=== PATIENT | male | born 1965 | race Caucasian/White ===

== ENCOUNTER 2017-05-24 07:30 | Emergency (ER) | payer BC ==
[~2017-05-24] VITALS: Ht 177.8 cm; Wt 79.3 kg
[2017-05-24 07:34] VITALS: TEMP 36.5; Ht 177.8 cm; Wt 79.3 kg
--- NOTE | 2017-05-24 07:58 | EMERGENCY ROOM VISIT NOTE ---
History Report prepared by Dick: Sindhu Catalan Under the Supervision of: Dr. Matthew Morton M.D. First contact with patient: 07:41 Chief Complaint: RESPIRATORY PROBLEMS Stated Complaint: CANNOT GET A FULL BREATH, NOT FEELING OXYGENATED History of Present Illness The patient is a 51 year old male who presents to the Emergency Room with complaints of constant respiratory problems since last night. The patient was at his martial arts class last night and he started feeling like short of breath from exercising. He states that typically he is able to recover and catch his breath, but last night he was unable to do this. His respiratory symptoms have persisted today. He still feels like he can't take a deep breath. He states, "I feel like I am anaerobic." The patient also reports feeling itchy and tingly all over. He notes dizziness and a headache. He rates his pain as s 2 /10 in severity. He states that he was feeling fine before his martial arts class last night. The patient denies any sinus pain, back pain, abdominal pain, and pain or swelling in his legs. He notes that he has been under a lot of stress lately. He is also in the [place] a lot for his job and he is unsure if he had any recent tick bites. 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 Source of History: patient Onset: last night Position: chest (respiratory) Symptom Intensity: 2/10 Quality: other (SOB) Timing: constant Modifying Factors (Worsening): exertion Associated Symptoms: + headache, + SOB, No abdominal pain, No back pain Note: Pt notes feeling itchy and tingly all over. He notes dizziness. Pt denies pain or swelling in his legs. Review of Systems All systems have been listed, reviewed, and are negative other than those previously mentioned. Please see Additional Medical History Sheet. Past Medical & Surgical Medical Problems: (1) Bite of nonvenomous arthropod (2) Infectious mononucleosis Family History Diabetes mellitus Social History Smoking Status: Former Smoker Marital Status: single Housing Status: lives alone Occupation Status: employed Current/Historical Medications No Active Prescriptions or Reported Meds Allergies Coded Allergies: No Known Allergies (Unverified Allergy, Mild, 10/27/06) Physical Exam Vital Signs Date Time Temp Pulse Resp B/P (MAP) Pulse Ox O2 Delivery O2 Flow Rate FiO2 05/24/17 14:40 78 18 136/101 98 Room Air 05/24/17 13:33 63 18 119/84 97 Room Air 05/24/17 12:11 60 05/24/17 11:50 56 18 126/87 96 Room Air 05/24/17 09:59 61 18 134/85 98 Room Air 05/24/17 08:06 98 Room Air 05/24/17 07:46 57 05/24/17 07:37 96 Room Air 05/24/17 07:34 36.5 59 17 122/82 98 Room Air Physical Exam GENERAL: Patient awake, alert, oriented x 3. Patient follows commands. Patient does not appear toxic. Patient is adequately hydrated and well- nourished. SKIN: No erythema, pallor, cyanosis or rash HEENT: Normal head, pupils equal, reactive to light and accommodation. Oral cavity and posterior pharynx appear normal. Neck: Without adenopathy, no neck vein distention. LUNGS: Clear to auscultation. No wheezes, no rales, no rhonchi. HEART: Grade 4/6 loud systolic murmur. No gallops. No rubs ABDOMEN: No masses, no rebound, no hepatomegaly or splenomegaly. EXTREMITIES: No signs of trauma. No pedal or pretibial edema. No calf or thigh tenderness. NEUROLOGIC: Cranial nerves II-XII within normal limits. No gross motor sensory function deficits. Medical Decision & Procedures ER Provider Diagnostic Interpretation: Radiology results as stated below per my review and radiologist interpretation: CHEST 2 VIEWS ROUTINE CLINICAL HISTORY: SOB dyspnea COMPARISON STUDY: No previous studies for comparison. FINDINGS: Mild cardiomegaly. Findings of a slight interstitial prominence throughout both hemithoraces. Curly B lines are noted at the lung bases. IMPRESSION: Early interstitial edema Electronically signed by: Caleb Sandoval M.D. 05/24/2017 8:31 AM Dictated Date/Time: 05/24/2017 8:27 AM Echocardiogram performed by Dr. Santos. Significant findings as stated below per his interpretation: Mitral Valve * Flail or severe prolapse of the mitral posterior leaflet. * There is no mitral valve stenosis. * There is severe mitral regurgitation. Laboratory Results 05/24/17 08:00 05/24/17 08:00 Test 05/24/17 08:00 05/24/17 08:10 05/24/17 08:12 Red Blood Count 4.23 M/uL (4.7-6.1) Mean Corpuscular Volume 88.7 fL (80-100) Mean Corpuscular Hemoglobin 30.3 pg (25-34) Mean Corpuscular Hemoglobin Concent 34.1 g/dl (32-36) RDW Standard Deviation 42.0 fL (36.4-46.3) RDW Coefficient of Variation 13.2 % (11.5-14.5) Mean Platelet Volume 11.6 fL (7.4-10.4) Anion Gap 5.0 mmol/L (3-11) Est Creatinine Clear Calc Drug Dose 88.2 ml/min Estimated GFR () 99.2 Estimated GFR (Non- 85.5 BUN/Creatinine Ratio 14.7 (10-20) Calcium Level 8.5 mg/dl (8.5-10.1) Total Bilirubin 0.4 mg/dl (0.2-1) Aspartate Amino Transf (AST/SGOT) 20 U/L (15-37) Alanine Aminotransferase (ALT/SGPT) 25 U/L (12-78) Alkaline Phosphatase 69 U/L (45-117) Troponin I < 0.015 ng/ml (0-0.045) Pro-B-Type Natriuretic Peptide 272 pg/ml (0-900) Total Protein 6.5 gm/dl (6.4-8.2) Albumin 3.6 gm/dl (3.4-5.0) Globulin 2.9 gm/dl (2.5-4.0) Albumin/Globulin Ratio 1.2 (0.9-2) Lyme Disease IgG Antibody NEG (NEG) Lyme Disease IgM Antibody NEG (NEG) Urine Color YELLOW Urine Appearance CLEAR (CLEAR) Urine pH 6.5 (4.5-7.5) Urine Specific [place] 1.017 (1.000-1.030) Urine Protein NEG (NEG) Urine Glucose (UA) NEG (NEG) Urine Ketones NEG (NEG) Urine Occult Blood NEG (NEG) Urine Nitrite NEG (NEG) Urine Bilirubin NEG (NEG) Urine Urobilinogen NEG (NEG) Urine Leukocyte Esterase NEG (NEG) Lactic Acid Level 0.8 mmol/L (0.4-2.0) Laboratory results as stated above per my review. ECG Indication: SOB/dyspnea Rate (beats per minute): 60 Rhythm: normal sinus Findings: no acute ischemic change, no ectopy ED Course 0741: Past medical records reviewed. The patient was evaluated in room A11B. A complete history and physical examination was performed. 0907: I reassessed the patient and he is doing well. 1123: I spoke with Dr. Santos of cardiology. We discussed the patient's case and he is going to take the patient for an echocardiogram. 1257: I discussed the patient's results and treatment plan with Dr. Santos again at this time. He has discussed the patient's case with Dr. Chin of cardiology at [facility]. Dr. Chin has accepted the patient for transfer for further management. 1301: Echocardiogram was performed by Dr. Santos. Please see above for the significant findings regarding the patient's mitral valve. 1420: I reassessed the patient at this time. He is resting comfortably. I discussed the results and treatment plan with the patient. I answered all pertaining questions that he had. He expressed understanding and verbalized agreement. The patient is awaiting transfer to [facility]. Medical Decision Differential diagnoses includes upper respiratory infection, sinus infection, lactic acidosis, pneumonia, Lyme Disease. He was found to have a loud murmur. He has a prior history of a murmur. Multiple labs, EKG and imaging were obtained. The patient appears to be in mild congestive failure. An echocardiogram was performed with results as listed above. Case was discussed at length with Dr. Santos who consulted with Dr. Chin at [facility]. It was felt that the patient required immediate evaluation by a cardiovascular team for possible valvular repair. I explained this to the patient. The patient consented to transport. Transport orders were written. Medication Reconciliation: I attest that I have personally reviewed the patient' s current medication list. Blood pressure Screening: Patient was found to have normal blood pressure on screening and does not require follow up. Consults Time Called: 1119 Consulting Physician: Dr. Santos Returned Call: [address] Santos of cardiology. We discussed the patient's case and he is going to take the patient for an echocardiogram. Additional Consults: Time Called: 1257 Consulted Physician: Dr. Santos Returned Call: [phone] Additional Comments: I discussed the patient's results and treatment plan with Dr. Santos again at this time. He has discussed the patient's case with Dr. Chin of cardiology at [facility]. Dr. Chin has accepted the patient for transfer for further management. Impression Primary Impression: Ruptured chordae tendineae Additional Impression: Mitral regurgitation Scribe Attestation The scribe's documentation has been prepared under my direction and personally reviewed by me in its entirety. I confirm that the note above accurately reflects all work, treatment, procedures, and medical decision making performed by me. Departure Information Dispostion Transfer Acute Care Facility Prescriptions No Active Prescriptions or Reported Meds Referrals Minesh Aaron, Alessio.[facility]. (PCP) Patient Instructions My [facility] Problem Qualifiers
[2017-05-24 08:06] VITALS: O2SAT 98
[2017-05-24 08:13] LABS: HEMATOCRIT 37.5 % (42-52); MEAN CELL VOLUME 88.7 fL (80-100); MEAN CORPUSCULAR HEMOGLOBIN 30.3 pg (25-34); MEAN CORPUSCULAR HGB CONC 34.1 g/dl (32-36); MEAN PLATELET VOLUME 11.6 fL (7.4-10.4); PLATELET COUNT 153 K/uL (130-400); RED BLOOD COUNT 4.23 M/uL (4.7-6.1); WHITE BLOOD COUNT 3.86 K/uL (4.8-10.8)
[2017-05-24 08:25] LABS: URINE APPEARANCE CLEAR (CLEAR); URINE BILIRUBIN NEG (NEG); URINE COLOR YELLOW; URINE NITRITE NEG (NEG); URINE PH 6.5 (4.5-7.5); URINE SPECIFIC GRAVITY 1.017 (1.000-1.030); UROBILINOGEN NEG (NEG); ZZUR CULT IF INDIC CLEAN CATCH NO
[2017-05-24 08:29] LABS: ALT/SGPT 25 U/L (12-78); BLOOD UREA NITROGEN 15 mg/dl (7-18); BUN/CREATININE RATIO 14.7 (10-20); CALCIUM 8.5 mg/dl (8.5-10.1); CARBON DIOXIDE 24 mmol/L (21-32); CHLORIDE 114 mmol/L (98-107); GLUCOSE 99 mg/dl (70-99); SODIUM 143 mmol/L (136-145)
--- NOTE | 2017-05-24 08:32 | DIAGNOSTIC IMAGING REPORT ---
CHEST 2 VIEWS ROUTINE CLINICAL HISTORY: SOB dyspnea COMPARISON STUDY: No previous studies for comparison. FINDINGS: Mild cardiomegaly. Findings of a slight interstitial prominence throughout both hemithoraces. Curly B lines are noted at the lung bases. IMPRESSION: Early interstitial edema Electronically signed by: Caleb Sandoval M.D. 05/24/2017 8:31 AM Dictated Date/Time: 05/24/2017 8:27 AM
[2017-05-24 08:34] LABS: ALB/GLOB RATIO 1.2 (0.9-2); ALKALINE PHOSPHATASE 69 U/L (45-117); AST/SGOT 20 U/L (15-37)
[2017-05-24 08:36] LABS: MANUAL MICROSCOPIC REQUIRED? NO; REVIEW REQ? NO
[2017-05-24 09:06] LABS: LYME DISEASE AB IGG NEG (NEG); LYME DISEASE AB IGM NEG (NEG)
--- NOTE | 2017-05-24 13:01 | ECHOCARDIOGRAM REPORT ---
*NOTICE TO RECEIVING [employer] This information is strictly Confidential and protected under [place] law. [place] law prohibits you from making any further disclosure of this information unless further disclosure is expressly permitted by the written consent of the person to whom it pertains or is authorized by law. A general authorization for the release of medical or other information is not sufficient for this purpose. Hospital accepts no responsibility if the information is made available to any other person, INCLUDING THE PATIENT. Interpretation Summary * Name: KAREN SANCHEZ Study Date: 05/24/2017 10:36 AM BP: 134/85 mmHg * Patient Location: ED HR: 65 * : 1965 (M/d/yyyy) Gender: Male Height: 70 in * Age: 51 yrs Ethnicity: CA Weight: 165 lb * Referring Physician: INEZ * Performed By: Autumn Quintero RDCS * * Reason For Study: SOB * BSA: 1.9 m2 * -- Conclusions -- * The left ventricle is hyperdynamic. * No regional wall motion abnormalities noted. * Ejection Fraction = >70 %. * Flail or severe prolapse of the mitral posterior leaflet. * There is severe mitral regurgitation. Procedure Details * A complete two-dimensional transthoracic echocardiogram was performed (2D, M-mode, Doppler and color flow Doppler). Left Ventricle * The left ventricle is normal in size. * There is normal left ventricular wall thickness. * Ejection Fraction = >70 %. * The left ventricle is hyperdynamic. * No regional wall motion abnormalities noted. Right Ventricle * The right ventricle is normal size. * The right ventricular systolic function is normal as assessed by tricuspid annular plane systolic excursion (TAPSE) (normal >1.5 cm). Atria * The left atrium is moderately dilated. * Right atrial size is normal. * No ASD detected; PFO is not assessed. Mitral Valve * Flail or severe prolapse of the mitral posterior leaflet. * There is no mitral valve stenosis. * There is severe mitral regurgitation. Tricuspid Valve * The tricuspid valve is normal in structure and function. * There is no tricuspid stenosis. * There is mild tricuspid regurgitation. * Right ventricular systolic pressure is normal. Aortic Valve * The aortic valve is normal in structure and function. * No hemodynamically significant valvular aortic stenosis. * No aortic regurgitation is present. Pulmonic Valve * The pulmonary valve is not well seen, but the Doppler examination is normal without significant regurgitation or stenosis. Great Vessels * The aortic root is normal size. * The pulmonary artery is not well visualized, but is probably normal size. Pericardium/Pleural * There is no pericardial effusion. Great Vessels * Normal inferior vena cava size and collapsability with sniff indicates a normal right atrial pressure of 3 mmHg MMode 2D Measurements and Calculations IVSd 1.2 cm IVSs 2.1 cm LVIDd 6.0 cm LVIDs 3.7 cm LVPWd 0.99 cm LVPWs 1.7 cm IVS/LVPW 1.2 FS 38.4 % EDV(Teich) 182.6 ml ESV(Teich) 58.8 ml EF(Teich) 67.8 % EDV(cubed) 220.2 ml ESV(cubed) 51.3 ml EF(cubed) 76.7 % % IVS thick 81.3 % % LVPW thick 69.5 % LV mass(C)d 278.1 grams LV mass(C)dI 144.6 grams/m\S\2 LV mass(C)s 314.6 grams LV mass(C)sI 163.6 grams/m\S\2 SV(Teich) 123.9 ml SI(Teich) 64.4 ml/m\S\2 SV(cubed) 168.8 ml SI(cubed) 87.8 ml/m\S\2 Ao root diam 3.3 cm Ao root area 8.4 cm\S\2 LA dimension 5.1 cm LA/Ao 1.6 LVAd ap4 44.7 cm\S\2 LVLd ap4 9.6 cm EDV(MOD-sp4) 179.1 ml EDV(sp4-el) 176.9 ml LVAs ap4 24.5 cm\S\2 LVLs ap4 7.4 cm ESV(MOD-sp4) 71.1 ml ESV(sp4-el) 68.8 ml EF(MOD-sp4) 60.3 % EF(sp4-el) 61.1 % SV(MOD-sp4) 108.1 ml SI(MOD-sp4) 56.2 ml/m\S\2 SV(sp4-el) 108.1 ml SI(sp4-el) 56.2 ml/m\S\2 Doppler Measurements and Calculations MV E max lyndsay 162.8 cm/sec MV A max lyndsay 44.1 cm/sec MV E/A 3.7 MV dec time 0.28 sec Ao V2 max 109.8 cm/sec Ao max PG 4.8 mmHg Ao max PG (full) 0.87 mmHg LV V1 max PG 4.0 mmHg LV V1 max 99.4 cm/sec TR max lyndsay 243.0 cm/sec
--- NOTE | 2017-05-24 14:06 | Cardiology Consultation ---
Cardiology Consultation Date of Service May 24, 2017. Cardiology Consultation Pertinent history Mr. Malin is a 51-year-old white male who presented to the emergency room today shortness of breath, congestive heart failure, and a loud systolic murmur. Dr. Morton order this consultation to assist in his cardiac management. The patient was in his usual state of health until last evening when he developed acute shortness of breath while practicing in a martial arts class. The patient claims that he "never recovered from the physical activity." He was able to sleep last evening, however, experienced 2 pillow orthopnea. When he awoke this morning, he still notice the sensation of "not being able to catch his breath." The patient denied exertional chest pain. He has not experienced syncope, presyncope, PND, palpitations, lower extremity edema, or claudication. The patient is very physically active on a daily basis. 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 The patient does carry a history of bileaflet mitral valve prolapse. An echocardiogram performed in May 2010 noted by leaflet prolapse and evidence of [id number] mitral regurgitation. His medications reviewed in detail. A 10 point review systems was negative except for that described above. Past medical history 1. Bileaflet mitral valve prolapse 2. Mild to moderate mitral regurgitation 3. 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 Respiratory rate is 18 the patient is afebrile 36.5 degree C. Saturations 97% on room air. HEENT exam is negative. Neck is supple with full carotid upstrokes. There are no carotid bruits. Jugular venous pressure is flat at 90. There is no thyromegaly. Cardiovascular exam reveals a regular rhythm and a harsh 4/6 holosystolic murmur heard across the entire precordium. No S3 or S4. Lungs noted bibasilar rales. Abdomen is soft and nontender without bruits. Extremities reveal intact radial artery and posterior tibial pulses bilaterally. There is no peripheral edema. Data CBC notes a hemoglobin of 12.8, hematocrit 37.5, white count 3.8, and a platelet count of 122798. Electrolytes notice O2 of 143, potassium 4.0, chloride 114, bicarb 24, BUN 15, creatinine 1.0, and a glucose of 99. Troponin I levels undetectable less than 0.015. BNP is normal at 272. Lyme titers are negative. Chest x-ray notes diffuse interstitial edema EKG note sinus rhythm with early repolarization changes. Echocardiogram notes hyperdynamic left ventricular systolic function without wall motion abnormality. There is severe prolapse or flail of the posterior mitral leaflet with evidence of severe mitral regurgitation. Impression Suspect that the patient acutely ruptured one or several chordae tendineae which his cause severe mitral regurgitation and evidence of congestive heart failure. His history, physical examination, an echocardiographic findings are consistent with acute, severe mitral regurgitation. The case has been discussed in detail with Dr. Saad Chin, a cardiothoracic surgeon at [facility]. He has accepted the patient in transfer. Plan 1. Agree with intravenous diuretics 2. Transfer via ambulance to [facility] when a bed is available.
[2017-05-24 14:40] VITALS: BP 136/101; PULSE 78; O2SAT 98
[2017-05-29] MEDS ORDERED: TRIA75TA PO (10:52)
== END 2017-05-24 15:02 | disposition short-term general hospital (02) ==
LOC: C.EDB 07:32 → C.EDA 15:02
DX: I51.1 Rupture of chordae tendineae, not elsewhere classified (principal); Z83.3 Family history of diabetes mellitus; Z87.891 Personal history of nicotine dependence; I34.0 Nonrheumatic mitral (valve) insufficiency

== ENCOUNTER → 2017-05-29 | Day surgery (SDC) | payer BC ==
[~2017-05-29] VITALS: Ht 177.8 cm; Wt 75.0 kg
[~2017-05-29] MED LIST: ACETAMINOPHEN 325 MG TAB PO PRN; ATROPINE SULFATE 0.1 MG/ML 5ML SYR IV PRN; FENTANYL CITRATE INJ 50 MCG/1 ML 2 ML VIAL ONE; HEPARIN SOD (PORCINE) 1000 UNIT/ML 10 ML VIAL ONE; MIDAZOLAM HCL 1 MG/ML 2ML VIAL ONE; NITROGLYCERIN/D5W 100MCG/ML 20ML SYR ONE; NiCARDipine HCL INJ 2.5 MG/ML 10 ML AMP ONE; ONDANSETRON INJ 2 MG/ML 2 ML VIAL IV PRN; SODIUM CHLORIDE 0.9% 1000ML 1,000 ML IV SCH; SODIUM CHLORIDE 0.9% 1000ML 250 ML IV PRN; TRIA75TA PO
[2017-05-29 10:14] VITALS: BP 103/63; PULSE 59; TEMP 36.5; O2SAT 95; Ht 177.8 cm; Wt 75.0 kg
--- NOTE | 2017-05-29 10:52 | History & Physical Bridge Note ---
H&P Re-Evaluation Bridge Note: I have examined the patient, reviewed the History & Physical and in the interval since the performance of the History & Physical I have noted the following changes of clinical significance:Patient transferred from [facility] to [facility] on 05/24/17 because of severe mitral regurgitation and flail MV leaflet. Discharged from [facility] on 05/25/17 on diuretic. Tentatively scheduled for MV surgery on 05/31/17. Cardiac cath indicated to assess for CAD prior to MV surgery. Procedure,risks,alternatives, benefits of cardiac catheterization completely discussed with patient. He agrees to the procedure. No orthopnea or PND since discharge. He does have decreased stamina . Exam today without evidence of CHF. 3/6 holosystolic murmur. Normal distal pulses. Plan on coronary angiography via right radial artery. Noelle Marquez MD
--- NOTE | 2017-05-29 10:53 | Procedure Note ---
Pre-Mod Sedation Assessment General Date of Moderate Sedation: May 29, 2017. Vital Signs: Vital Signs Past 12 Hours Date Time Temp Pulse Resp B/P (MAP) Pulse Ox O2 Delivery O2 Flow Rate FiO2 05/29/17 10:14 36.5 59 18 103/63 95 Room Air Review Cardiovascular: regular rate, rhythm, no edema, no gallop, + systolic murmur Abdomen: normal bowel sounds, non tender, soft Lungs: lungs clear Pre-Sedation Airway Assessment Oral Cavity: WNL Able to Visualize Vocal Cords: No Short Thick Neck: No Hx of Sleep Apnea: No Smoking Status: Never Smoker Mallampati Classification: Class III Procedure Planning Contraindications-for Mod Sed: None Yes Notes The planned sedation has been discussed with the patient and consent obtained. I have identified the patient, determined the appropriateness of sedation and have assessed the patient immediately prior to the procedure. All medicine(s) and interventions are by my order.
--- NOTE | 2017-05-29 12:13 | Procedure Note ---
Post-Mod Sedation Assessment General Date of Moderate Sedation May 29, 2017. Vital Signs: Vital Signs Past 12 Hours Date Time Temp Pulse Resp B/P (MAP) Pulse Ox O2 Delivery O2 Flow Rate FiO2 05/29/17 12:10 53 16 110/68 (82) 95 Room Air 05/29/17 12:05 55 16 109/70 (83) 95 Room Air 05/29/17 10:14 36.5 59 18 103/63 95 Room Air Review - Discharge Criteria Vital Signs Stable: Yes Alert/Oriented/Conversant: Yes Returned to Baseline Mental St: Yes Nausea Absent/Minimal: Yes Pain/Discomfort/Absent/Minimal: Yes Normal/Baseline Respirations: Yes Active Bleeding?: No Pt Received D/C Instructions: Yes Prescriptions Given: None Specific Proced. D/C Criteria Distal Pulses Present (Cardiac: Yes Groin site assessed-Card Cath: Yes Voided Prior To Discharge: Yes Discharged Patients Adult Escort/Transportation: Yes
--- NOTE | 2017-05-29 12:24 | Discharge Instructions ---
Discharge Instructions Procedure Procedure Date: May 29, 2017. Reason for Visit: Metro Valve Prolapse ; Sob *Dr Marquez To Do*. Discharge Discharge Date: May 29, 2017. Discharge Diagnosis: Mitral Regurgitation Last Recorded Wt (Kilograms): 75 Anesthesia Post Anesthesia Instructions: If you have had General Anesthesia or IV Sedation: * Do not drive today. * Resume driving when surgeon permits. * Do not make important decisions or sign legal documents today. * Call surgeon for: 1. Temperature elevations greater than 101 degrees F. 2. Uncontrollable pain. 3. Excessive bleeding. 4. Persistent nausea and vomiting. 5. Medication intolerance (nausea, vomiting or rash). * For nausea and vomiting use only clear liquids such as: tea, soda, bouillon until nausea subsides, then gradually increase diet as tolerated. * If you have any concerns or questions, call your surgeon's office. If physician is unavailable and it is an emergency, call 911 or go to the nearest emergency room. Instructions Activity Recommendations: lifting limitation (No lifting over 10 pounds for 2 days), exercise/sex/sports limit (No strenuous activities), driving or machine use limit (No driving for 2 days), shower/bathe limit (You can shower on , 05/30/17) Return to School/Work: with the following limitations (Stay off of work ) Recommended Home Diet: low sodium Allergies: Coded Allergies: No Known Allergies (Unverified Allergy, Mild, 10/27/06) Follow Up Additional Instructions: Call or Jimmy at [phone] for any problems or questions. Follow-up with: Dr. Santos after surgery. [facility] Recommendations: Call your doctor if: * Temperature above 101 degrees * Pain not relieved by pain medicine ordered * There is increased drainage or redness from any incision * You have any unanswered questions or concerns. Your Doctors Instructions noted above were prepared by provider Ham Marquez. Patient Signature Section: Patient Instructions Signature Page Bacilio Malin Patient (or Guardian) Signature/Date: I have read and understand the instructions given to me by my caregivers. Caregiver/RN/Doctor Signature/Date: The above-named patient and/or guardian has received patient instructions on this date. + Original Patient Signature Page (only) stays with chart. Please make copy for patient.
--- NOTE | 2017-05-29 12:45 | Cardiac Catheterization ---
Procedure Note Procedure Date May 29, 2017. Pre-Procedure Diagnosis Valvular Disease AUC Score 7 Post-Procedure Diagnosis Normal Coronary Arteries, Normal Intracardiac Pressures Procedure(s) Performed Coronary Angiography, Left Heart Cath Senior Living Advisor Dr. Marquez Sand Blaster(s) NARCISA Platt Estimated Blood Loss Medication(s) Fentanyl, Versed, Lidocaine 1% Summary of Findings Clinical indications: Severe mitral regurgitation, hyperdynamic left ventricular systolic function, flail posterior mitral leaflet versus severe prolapse of posterior mitral valve leaflet. These findings were documented on echocardiogram May 24, 2017 after the patient presented to [facility] with severe dyspnea. He was evaluated in the emergency department by Dr. Thuan Santos. He was treated for congestive heart failure. He was transferred to the [facility] for treatment of his valve disease. At [place] he received diuretic therapy. He was discharged home on May 25, 2017. He is tentatively scheduled undergo mitral valve surgery on Wednesday May 31, [address] [facility]. Cardiac catheterization is indicated to assess for presence of concomitant coronary artery disease. Patient states that since discharge home on May 25 he has had mild residual dyspnea on exertion and decreased exercise tolerance. The procedure, risks, benefits, and alternatives of cardiac catheterization were extensively discussed with him. He consented to undergo the procedure. Catheterization site: 4 Moldovan sheath right femoral artery. Multiple attempts were first made at right radial arterial access. These were unsuccessful. Catheters: 4 Moldovan JL4 and JR4 diagnostic catheters. Hemostasis: Manual pressure Complications: None. Findings: Fluoroscopy did not reveal any coronary calcifications. Coronary circulation was right dominant. The left main coronary artery was a large caliber vessel giving rise to large caliber left anterior descending and left circumflex coronary arteries. The LAD gave rise to 4 very small caliber diagonal branches. The distal LAD terminated at the apex of the heart as a very small caliber vessel. The mid left circumflex gave rise to a long medium caliber marginal artery. The distal circumflex gave rise to very small caliber 2nd marginal artery. The right coronary artery was a large caliber vessel giving rise to small to medium caliber and long right posterior descending and right posterolateral arteries. The left and right coronary arteries and all of their branches had no obstructive disease. Normal coronary arteries. The left ventricular end-diastolic pressure was 10 millimeters of mercury. Plan: The patient's cardiac catheterization results will be sent to the [facility]. He is tentatively scheduled undergo mitral valve surgery on Wednesday May 31, [address] [facility]. Hemodynamics Rest Ao: 93/59/73 mm Hg Final Ao: 109/66/83 mm Hg LV: 92/10 mm Hg Recommendations management recommendations (Mitral valve repair or replacement) Specimens None Radiation Exposure (mGy) 804 Contrast (mls) 50 ml Visipaque Fluids (cc crystalloids) 100 Drains None Anesthesia Intravenous Versed and fentanyl Procedural Complication(s) None Disposition [employer] Holding/Recovery ACC Data Cardiac Status Clinical evaluation leading to the procedure CAD Presntation: Sx unlikely to be ischemic Anginal Classification: No symptoms Heart Failure: NYHA Class: CCS III Cardiogenic Shock w/in 24Hrs: No Cardiac Arrest w/in 24Hrs: No Imaging studies past 6 months: Yes Stress studies past 6 months: No Standard Exercise Stress Test: No Stress Echocardiogram: No Stress Testing w/SPECT MPI: No Cardiac CTA: Yes Coronary Anatomy Dominant: Right Left Main (% Stenosis): Normal LAD (% Stenosis): Normal D1 (% Stenosis): Normal D2 (% Stenosis): Normal D3 (% Stenosis): Normal Circumflex (% Stenosis): Normal OM1 (% Stenosis): Normal OM2 (% Stenosis): Normal RCA (% Stenosis): Normal R PDA (% Stenosis): Normal R PL1 (% Stenosis): Normal Left Ventricular Angiography EF (%): NA Diagnostic Physician's Name: Ham Marquez M.D. Status: Elective Closure Device Percutaneous Entry Location: Femoral Closure Device: none - manual hold Recommendations: management recommendations (Mitral valve repair or replacement )
[2017-05-29 15:00] VITALS: BP 121/66; PULSE 58; O2SAT 96
== END | disposition home or self-care (01) ==
LOC: C.CATH 09:56
PROVIDERS: ATTEND Internal Medicine Cardiovascular Disease
DX: I38 Endocarditis, valve unspecified (principal)